=== PATIENT | female | born 1985 | race Caucasian/White ===

== ENCOUNTER 2022-08-18 14:40 | Emergency (ER) | payer OTHER, SELFPAY ==
[2022-08-18 14:55] VITALS: BP 107/69; PULSE 83; RESP 16; TEMP 37.2; O2SAT 98
--- NOTE | 2022-08-18 15:25 | ED.URI ---
HPI - URI/Sore Throat General Chief Complaint: Upper Respiratory Infection Stated Complaint: Cough Time Seen by Provider: 08/18/22 15:25 History of Present Illness HPI Narrative: 37-year-old female presented for complaint of cough for 3 days. Endorses cough is worse at night, and has had a runny nose. She wakes in the morning with large amount of mucus. Cough is nonproductive throughout the day. She denies associated shortness breath, wheezing, nausea, vomiting, diarrhea, fevers or chills. Denies sick contacts. Not taking anything for symptoms. She had a negative COVID test yesterday. Related Data Allergies Allergy/AdvReac Type Severity Reaction Status Date / Time iodine Allergy Unknown Nausea and Verified 08/18/22 14:58 Vomiting shellfish derived Allergy Unknown Nausea and Verified 08/18/22 14:58 Vomiting Review of Systems Review of Systems: CONSTITUTIONAL: Denies body aches, fever, chills, or sweats. EYES: Denies visual changes, redness, or discharge. ENT: Denies otalgia. CARDIOVASCULAR: Denies chest pain, palpitations, or edema. RESPIRATORY: Denies dyspnea. GASTROINTESTINAL: Denies abdominal pain, nausea, vomiting, or diarrhea. SKIN: Denies rash, itching, or wounds. MUSCULOSKELETAL: Denies back pain, joint pain, or myalgia. NEUROLOGIC: Denies headache PMFSH Past Medical History Medical History Pharyngitis Family History Family History Other No family history of cardiovascular disease No family history of diabetes mellitus No family history of hypertension No family history of malignant neoplasm Social History Social History Smoking status: Never smoker Alcohol intake: current Exam Narrative: GENERAL: well-appearing, no acute distress. EYES: conjunctivae clear ENT: Mucous membranes moist. TMs pearly nava with normal light reflex bilaterally, left effusion; no tragal tenderness. Oropharynx mildly erythematous Tonsils enlarged and without exudate. No drooling, no hoarseness, no trismus, uvula midline. No tripod positioning, hot potato voice, or soft palate swelling. NECK: Supple. No lymphadenopathy CHEST: Clear to auscultation, breath sounds equal. HEART: Regular rate and rhythm. No murmur heard. SKIN: Warm, dry, no rash. NEURO: Alert and oriented x3. Course Course Emergency Course: Patient is aware of diagnosis, understands and agrees to treatment plan. Anticipatory guidance given. Patient agrees to follow-up as directed and is aware of reasons to seek care at the emergency department. Portions of this record may have been created with voice recognition software Level of Care: Express Care Visit Vital Signs Vital signs: Vital Signs Temperature 99.0 F 08/18/22 14:55 Pulse Rate 83 08/18/22 14:55 Respiratory Rate 16 08/18/22 14:55 Blood Pressure 107/69 08/18/22 14:55 Pulse Oximetry 98 08/18/22 14:55 Oxygen Delivery Room Air 08/18/22 14:55 Temperature 99.0 F 08/18/22 14:55 Pulse Rate 83 08/18/22 14:55 Respiratory Rate 16 08/18/22 14:55 Blood Pressure 107/69 08/18/22 14:55 Pulse Oximetry 98 08/18/22 14:55 Oxygen Delivery Room Air 08/18/22 14:55 MDM - URI/Sore Throat MDM Narrative Medical decision making narrative: strep result reviewed with pt. Rx's reviewed. Advise supportive treatments. Patient is appropriate for outpatient treatment and follow-up. Differential Diagnosis Differential diagnosis: Likely upper respiratory infection, viral infection and pharyngitis Lab Data Labs: Strep Screen Presumptive Negative *(Reference Range: Negative)* Discharge Plan Discharge Clinical Impression: Viral infection Patient Disposition: Home, Self-Care Condition: Stable Instructions: An
== END 2022-08-18 15:50 | disposition home or self-care (01) ==
PROVIDERS: Emergency Provider Nurse Practitioner Family; PCP Family Medicine
DX: B34.9 Viral infection, unspecified (principal)
CPT/HCPCS: 87081; 87880; 99213; G0463

== ENCOUNTER 2023-05-08 08:22 | Emergency (ER) | payer OTHER, SELFPAY ==
[2023-05-08 08:31] VITALS: BP 117/77; PULSE 100; RESP 16; TEMP 37.1; O2SAT 100
--- NOTE | 2023-05-08 08:39 | ED.URI ---
HPI - URI/Sore Throat General Chief Complaint: Upper Respiratory Infection Stated Complaint: Ears Irritation/Sore Throat Time Seen by Provider: 05/08/23 08:35 Source: patient Mode of arrival: ambulatory Limitations: no limitations History of Present Illness HPI Narrative: Nadya is a 37-year-old female patient presenting to the clinic today with complaints of bilateral ear pain, sore throat, and nasal congestion. Symptoms have been going on for 5 days. He reports having low-grade fevers for the past 2 days. Denies any shortness of breath or chest pain. Denies any known exposure to anyone with COVID, flu, or strep. MD elicited complaint: cough, sore throat, nasal congestion and other (Bilateral ear pain) Related Data Allergies Allergy/AdvReac Type Severity Reaction Status Date / Time iodine Allergy Unknown Nausea and Verified 05/08/23 08:32 Vomiting shellfish derived Allergy Unknown Nausea and Verified 05/08/23 08:32 Vomiting Review of Systems Review of Systems: Pertinent positives per HPI. Patient denies any fever, chills, rash, headache, visual changes, dizziness, cough, shortness of breath, chest pain, palpitations, nausea, vomiting, diarrhea, constipation, abdominal pain, or any urinary issues. PMFSH Past Medical History Medical History Pharyngitis Family History Family History Other No family history of cardiovascular disease No family history of diabetes mellitus No family history of hypertension No family history of malignant neoplasm Social History Social History Smoking status: Never smoker Alcohol intake: current Comments At the time of my signature, I reviewed and agree with the nursing past medical, surgical, social, and family history. There is no relevant family history pertinent to the patient complaint. Exam Narrative: General: Well-developed, well nourished, in no apparent distress Head: Normocephalic, atraumatic Eyes: Pupils equally round and reactive to light bilaterally, EOM intact, sclera and conjunctive clear, no discharge, lids normal Ears: TMs intact, bulging, red, ear canals clear, no drainage, grossly hearing normal. Nose: Nares patent, clear nasal discharge, no inflammation, no sinus tenderness. Mouth: Oral pharynx red with bilateral tonsillar enlargement without lesions or masses, good dentition, MMM. Neck: Supple, trachea midline, no enlargement of anterior or posterior cervical nodes, no thyroid masses or goiter palpable. Cardio: Regular rate and rhythm, s1 and s2 normal, no murmur appreciated. Resp: Clear to auscultation bilaterally, no rhonchi, rales, wheezing or rubs Course Course Emergency Course: Portions of this record may have been created with voice recognition software. Level of Care: Express Care Visit Vital Signs Vital signs: Vital Signs Temperature 37.1 C 05/08/23 08:31 Pulse Rate 100 05/08/23 08:31 Respiratory Rate 16 05/08/23 08:31 Blood Pressure 117/77 05/08/23 08:31 Pulse Oximetry 100 05/08/23 08:31 Oxygen Delivery Room Air 05/08/23 08:31 Temperature 37.1 C 05/08/23 08:31 Pulse Rate 100 05/08/23 08:31 Respiratory Rate 16 05/08/23 08:31 Blood Pressure 117/77 05/08/23 08:31 Pulse Oximetry 100 05/08/23 08:31 Oxygen Delivery Room Air 05/08/23 08:31 Vital signs reviewed MDM - URI/Sore Throat MDM Narrative Medical decision making narrative: At the time of visit patient is resting on exam table. I suspect patient has bilateral otitis media, viral pharyngitis, and URI. Prescription for amoxicillin and prednisone was sent to the pharmacy. Supportive measures were discussed with the patient she voiced understanding discharge instructions and agrees to treatment plan. Return precautions were reviewed [facility]
== END 2023-05-08 08:48 | disposition home or self-care (01) ==
PROVIDERS: Emergency Provider Nurse Practitioner Family; PCP Family Medicine
DX: J06.9 Acute upper respiratory infection, unspecified (principal); J02.9 Acute pharyngitis, unspecified; H66.003 Acute suppurative otitis media without spontaneous rupture of ear drum, bilateral
CPT/HCPCS: 87081; 87880; 99213; G0463

== ENCOUNTER 2023-05-15 10:37 | Emergency (ER) | payer OTHER, SELFPAY ==
[2023-05-15 10:50] VITALS: BP 121/88; PULSE 89; RESP 16; TEMP 37.3; O2SAT 99
--- NOTE | 2023-05-15 10:58 | ED.EAR ---
HPI - Ear Problem General Chief complaint: Ear Stated complaint: both ears popping/pressure Time Seen by Provider: 05/15/23 11:35 Source: patient and RN notes reviewed Mode of arrival: ambulatory Limitations: no limitations History of Present Illness HPI Narrative: 37-year-old female presents concern for bilateral ear fullness and popping. She also reports bilateral neck soreness. Reports she was treated for an ear infection, finished her antibiotics recently. She reports pain has resolved in her ears she continues to have fullness and popping. Reports she also finished a steroid that she is prescribed with the antibiotic. She denies fever, aches, chills, sweats. Reports fatigue MD Complaint: other (ear fullness) Related Data Allergies Allergy/AdvReac Type Severity Reaction Status Date / Time iodine Allergy Intermediate Nausea and Verified 05/15/23 11:03 Vomiting shellfish derived Allergy Intermediate Nausea and Verified 05/15/23 11:03 Vomiting Review of Systems Review of Systems: CONSTITUTIONAL: Denies malaise, chills, sweats, or fever. Reports fatigue EYES: Denies visual changes, redness, or discharge. ENT: Denies rhinorrhea, congestion, sinus pain, and sore throat. Reports bilateral ear fullness and popping CARDIOVASCULAR: Denies chest pain, palpitations, or edema. RESPIRATORY: Denies cough. Denies dyspnea. GASTROINTESTINAL: Denies abdominal pain, nausea, vomiting, diarrhea SKIN: Denies rash or itching. MUSCULOSKELETAL: Reports bilateral neck discomfort NEUROLOGIC: Denies headache. All systems reviewed & are unremarkable except as noted in HPI and below PMFSH Past Medical History Medical History Pharyngitis Family History Family History Other No family history of cardiovascular disease No family history of diabetes mellitus No family history of hypertension No family history of malignant neoplasm Social History Social History Smoking status: Never smoker Alcohol intake: current Comments At time of signature, agree with nursing past medical, surgical, social and family history. There is no relevant family history pertinent to the presenting complaint Exam Narrative: GENERAL: Well-appearing, well-nourished, and in no acute distress. HEAD: Normocephalic EYES: PERRLA, conjunctivae clear ENT: Nares clear, turbinates edematous, clear discharge. Mucous membranes moist. TM pearly nava with dull light reflex bilaterally; no tragal tenderness. Oropharynx not erythematous without lesions. Tonsils not enlarged and without exudate, no drooling, no hoarseness, no trismus, uvula midline. NECK: Supple. No lymphadenopathy CHEST: Clear to auscultation, breath sounds equal. No wheezing, rhonchi, rales, or stridor. No respiratory distress, speaks in full sentences. HEART: Regular rate and rhythm. No murmur heard. SKIN: Warm, dry, no rash. MUSC: No midline neck tenderness, no significant paraspinal tenderness, no erythema, warmth NEURO: Alert and oriented x3. PSYCH: Normal mood and affect Course Course Emergency Course: Patient is aware of diagnosis, understands and agrees to treatment plan. Anticipatory guidance given. Patient agrees to follow-up as directed and is aware of reasons to seek care at the emergency department. Portions of this record may have been created with voice recognition software Level of Care: Express Care Visit Vital Signs Vital signs: Vital Signs Temperature 99.2 F 05/15/23 10:50 Pulse Rate 89 05/15/23 10:50 Respiratory Rate 16 05/15/23 10:50 Blood Pressure 121/88 05/15/23 10:50 Pulse Oximetry 99 05/15/23 10:50 Oxygen Delivery Room Air 05/15/23 10:50 Temperature 99.2 F 05/15/23 10:50 Pulse Rate 89 05/15/23 10:50 Respiratory Rate 16 05/15/23 10:50 Blood Pres
== END 2023-05-15 11:55 | disposition home or self-care (01) ==
PROVIDERS: Emergency Provider Nurse Practitioner; PCP Family Medicine
DX: H73.893 Other specified disorders of tympanic membrane, bilateral (principal); S46.812A Strain of other muscles, fascia and tendons at shoulder and upper arm level, left arm, initial encounter; S46.811A Strain of other muscles, fascia and tendons at shoulder and upper arm level, right arm, initial encounter; X58.XXXA Exposure to other specified factors, initial encounter
CPT/HCPCS: 99213; G0463